=== PATIENT | female | born 1985 | race Caucasian/White ===

== ENCOUNTER 2017-04-09 22:34 | Emergency (ER) | payer SELFPAY ==
[~2017-04-09 22:34] MED LIST: BUPR2SUB SL; CIPR500T4 PO
[2017-04-09 22:38] VITALS: BP 115/78; PULSE 100; RESP 16; TEMP 97.5; O2SAT 99
== END 2017-04-09 23:23 | disposition left against medical advice (07) ==
LOC: NED 22:34
DX: Z53.21 Procedure and treatment not carried out due to patient leaving prior to being seen by health care provider (principal); R10.31 Right lower quadrant pain
CPT/HCPCS: 99281